=== PATIENT | female | born 1975 | race Caucasian/White ===

== ENCOUNTER 2022-01-06 21:21 | Emergency (ER) | payer OTHER ==
[~2022-01-06] VITALS: Ht 160 cm; Wt 88.0 kg
--- NOTE | 2022-01-06 22:21 | ED General ---
General Chief Complaint: General Problems/Pain Stated Complaint: VOMITING Nursing Triage Note: PT AMB TO [facility] WITH C/O FEELING SHAKY AND NAUSOUS WHILE AT DINNER WITH FRIENDS. 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 oz. kg; 34.00 BMI Method: Progress/Results/Core Measures Suspected Sepsis SIRS Temperature: Pulse: 75 Respiratory Rate: 18 Blood Pressure 139 /84 Mean: 102 Results/Orders My Orders Orders - TERESA LUO APRN Covid 19 Inhouse Test (01/06/22 21:33) Influenza A And B By Pcr (01/06/22 21:33) Vital Signs/I&O 01/06/22 21:32 Temp 36.2 Pulse 75 Resp 18 B/P (MAP) 139/84 (102) Capillary Refill : Blood Pressure Mean: 102 Departure Impression Primary Impression: Adverse effect of vaccine Disposition: 01 HOME, SELF-CARE Condition: Improved Departure-Patient Inst. Decision time for Depature: 22:20 Patient Instructions: COVID-19 Vaccine (Adenovirus Vector) [employer] FDA Fact Sheet Add. Discharge Instructions: Plan: 1. Return or follow up with PCP if your symptoms persist. All discharge instructions reviewed with patient and/or family. Voiced understanding. TERESA LUO APRN Jan 06, 2022 22:21
[2022-01-06 22:25] VITALS: BP 140/81
== END 2022-01-06 22:27 | disposition home or self-care (01) ==
LOC: ER 21:25
DX: T50.B95A Adverse effect of other viral vaccines, initial encounter (principal)
CPT/HCPCS: 99281